=== PATIENT | female | born 1970 | race Caucasian/White ===

== ENCOUNTER 2016-11-27 17:03 | Emergency (ER) | payer BC, OTHER ==
[2016-11-27 17:23] VITALS: BP 150/84; PULSE 80; RESP 16; TEMP 97.7
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
== END 2016-11-27 18:05 | disposition home or self-care (01) ==
LOC: EC 17:03
DX: M54.5 Low back pain (principal); Z87.891 Personal history of nicotine dependence; V43.52XA Car driver injured in collision with other type car in traffic accident, initial encounter; Y92.481 Parking lot as the place of occurrence of the external cause
CPT/HCPCS: 99283

== ENCOUNTER → 2017-04-23 | Outpatient (CLI) | payer OTHER ==
--- NOTE | 2017-04-23 11:35 | XR ---
EXAMINATION TYPE: XR knee complete LT DATE OF EXAM: 04/23/2017 COMPARISON: NONE HISTORY: Pain TECHNIQUE: Four views are submitted. FINDINGS: Mild narrowing of the medial compartment of the knee joint. Mild narrowing patellofemoral joint.. Os seous structures are intact. No acute fracture seen. IMPRESSION: 1. No acute fracture or dislocation. 2. Mild arthropathy.
== END | disposition home or self-care (01) ==
LOC: RADXRMAIN 11:01
PROVIDERS: ATTEND Emergency Medicine
DX: M12.862 Other specific arthropathies, not elsewhere classified, left knee (principal)

== ENCOUNTER → 2017-04-27 | Outpatient (CLI) | payer OTHER ==
--- NOTE | 2017-04-27 17:32 | XR ---
EXAMINATION TYPE: XR tibia fibula LT DATE OF EXAM: 04/27/2017 COMPARISON: NONE HISTORY: Leg pain TECHNIQUE: 4 views FINDINGS: I see no fracture nor dislocation. Tibia and fibula appear intact. IMPRESSION: Negative left tibia and fibula exam.
== END | disposition home or self-care (01) ==
LOC: RADXRMAIN 16:57
PROVIDERS: ATTEND Emergency Medicine
DX: S80.02XA Contusion of left knee, initial encounter (principal)

== ENCOUNTER → 2018-05-19 | Outpatient (CLI) | payer BC ==
--- NOTE | 2018-05-21 10:34 | MM ---
Reason for exam: screening (asymptomatic). Last mammogram was performed 8 years and 10 months ago. History: Took hormonal contraceptives for 2 years. Physical Findings: A clinical breast exam by your physician is recommended on an annual basis and results should be correlated with mammographic findings. MG 3D Screening Mammo W/Cad Bilateral CC and MLO view(s) were taken. Prior study comparison: July 13, 2009, bilateral digital screening mammogram. The breast tissue is heterogeneously dense. This may lower the sensitivity of mammography. No significant changes when compared with prior studies. ASSESSMENT: Negative, BI-RAD 1 RECOMMENDATION: Routine screening mammogram of both breasts in 1 year.
== END | disposition home or self-care (01) ==
LOC: RADMAMWWP 08:16
PROVIDERS: ATTEND Family Medicine
DX: Z12.31 Encounter for screening mammogram for malignant neoplasm of breast (principal)
CPT/HCPCS: 77063; 77067

== ENCOUNTER 2020-07-14 22:42 | Emergency (ER) | payer BC ==
[2020-07-14 22:53] VITALS: TEMP 97.7
--- NOTE | 2020-07-14 23:37 | ED ---
Fall HPI - General Chief Complaint: Fall Stated Complaint: Fall Time Seen by Provider: 07/14/20 23:02 Source: patient Mode of arrival: wheelchair - Related Data Home Medications Medication Instructions Recorded Confirmed Calcium Carbonate [Calcium] 600 mg PO HS 11/27/16 11/27/16 Multivitamins, Thera [Multivitamin 1 tab PO HS 11/27/16 11/27/16 (formulary)] Potassium 99 mg PO HS 11/27/16 11/27/16 Zinc 50 mg PO HS 11/27/16 11/27/16 metFORMIN HCL [Glucophage] 1,000 mg PO BID 11/27/16 11/27/16 Previous Rx's Medication Instructions Recorded Cyclobenzaprine [Flexeril] 10 mg PO TID #20 tab 11/27/16 Ibuprofen 600 mg PO Q6HR #30 tablet 11/27/16 Allergies Allergy/AdvReac Type Severity Reaction Status Date / Time codeine AdvReac Nausea & Verified 07/14/20 22:53 Vomiting Review of Systems ROS Statement: Those systems with pertinent positive or pertinent negative responses have been documented in the HPI. ROS Other: All systems not noted in ROS Statement are negative. Past Medical History Past Medical History: Diabetes Mellitus, Hypertension Additional Past Medical History / Comment(s): COVID 01/05 History of Any Multi-Drug Resistant Organisms: None Reported Past Surgical History: Section, Hernia Repair Past Psychological History: No Psychological Hx Reported Smoking Status: Former smoker Past Alcohol Use History: Occasional Past Drug Use History: None Reported General Exam Limitations: no limitations Course Vital Signs 07/14/20 22:49 Temperature 97.7 F Pulse Rate 78 Respiratory 20 Rate Blood Pressure 134/92 O2 Sat by Pulse 99 Oximetry Disposition Clinical Impression: Fall, Closed right ankle fracture Disposition: HOME SELF-CARE Condition: Good Instructions (If sedation given, give patient instructions): Fall Prevention for Older Adults (ED), Ankle Fracture (ED) Is patient prescribed a controlled substance at d/c from ED?: No Referrals: Shellie Yang MD [Primary Care Provider] - 1-2 days
--- NOTE | 2020-07-14 23:52 | XR ---
EXAMINATION TYPE: XR hand complete LT DATE OF EXAM: 07/14/2020 COMPARISON: NONE HISTORY: Fall. Pain. TECHNIQUE: 3 views FINDINGS: Metacarpals appear intact. I see no fracture nor dislocation. There are no erosions. IMPRESSION: Negative left hand exam. No fracture.
--- NOTE | 2020-07-14 23:53 | XR ---
EXAMINATION TYPE: XR ankle complete RT DATE OF EXAM: 07/14/2020 COMPARISON: NONE HISTORY: Fall. Pain. TECHNIQUE: 3 views FINDINGS: There is oblique fracture of the distal fibula. There is soft tissue swelling over the late ral malleolus. Ankle mortise is anatomic. Talus is intact. IMPRESSION: Acute fracture of the distal fibula with soft tissue swelling.
--- NOTE | 2020-07-14 23:58 | CT ---
EXAMINATION TYPE: CT brain cspine wo con DATE OF EXAM: 07/14/2020 COMPARISON: None HISTORY: Fall CT DLP: 1546.5 mGycm Automated exposure control for dose reduction was used. Images obtained of the brain and cervical spine without contrast. Ventricles have normal size. There is no mass effect nor midline shift. There is no sign of intracran ial hemorrhage. The calvarium is intact. There is normal aeration of the mastoid air cells. Skull bas e is intact. The cervical vertebra have normal alignment. Posterior elements are intact. Facet joints are intact. There is no evidence of a fracture. IMPRESSION: Negative CT scan of the cervical spine. No fracture. Negative CT scan of the brain.
[2020-07-15 01:40] VITALS: BP 144/78; PULSE 80; RESP 18
== END 2020-07-15 01:40 | disposition home or self-care (01) ==
LOC: EC 22:42
DX: S82.831A Other fracture of upper and lower end of right fibula, initial encounter for closed fracture (principal); E11.9 Type 2 diabetes mellitus without complications; I10 Essential (primary) hypertension; Z79.84 Long term (current) use of oral hypoglycemic drugs; Z87.891 Personal history of nicotine dependence; W07.XXXA Fall from chair, initial encounter
CPT/HCPCS: 70450; 72125; 99284

== ENCOUNTER 2021-03-07 11:14 | Emergency (ER) | payer BC ==
[2021-03-07] MEDS ORDERED: lisinopriL 20 MG TAB PO STA (11:35)
[2021-03-07] MEDS ORDERED: SODIUM CHLORIDE 0.9% 500 ML 500 ML IV STA (11:40)
[2021-03-07 11:43] VITALS: RESP 16
--- NOTE | 2021-03-07 12:07 | XR ---
EXAMINATION TYPE: XR chest 2V DATE OF EXAM: 03/07/2021 COMPARISON: NONE HISTORY: Chest pain TECHNIQUE: Frontal and lateral views of the chest are obtained. FINDINGS: There is no focal air space opacity, pleural effusion, or pneumothorax seen. The cardiac silhouette size is within normal limits. There are overlying leads. The osseous structures are intac t. IMPRESSION: No acute cardiopulmonary process.
[2021-03-07 12:11] LABS: ALT 30 U/L (4-34); AST 24 U/L (14-36); African American GFR (CKD) >90 (>60 ml/min/1.73 sqM); Albumin 4.6 g/dL (3.5-5.0); Alkaline Phosphatase 116 U/L (38-126); Anion Gap 13 mmol/L; Blood Urea Nitrogen 14 mg/dL (7-17); Calcium 10.3 mg/dL (8.4-10.2); Carbon Dioxide 24 mmol/L (22-30); Chloride 100 mmol/L (98-107); Glucose 213 mg/dL (74-99); Magnesium 1.6 mg/dL (1.6-2.3); Non-African American GFR(CKD) >90 (>60 ml/min/1.73 sqM); Potassium 4.1 mmol/L (3.5-5.1); Sodium 137 mmol/L (137-145); Total Bilirubin 0.6 mg/dL (0.2-1.3); Total Protein 7.9 g/dL (6.3-8.2)
[2021-03-07 12:14] LABS: INR 0.9 (<1.2); Partial Thromboplastin Time 22.4 sec (22.0-30.0); Prothrombin Time 9.6 sec (9.0-12.0)
[2021-03-07 12:34] LABS: Basophils # (A) 0.1 k/uL (0-0.2); Basophils % (A) 1 %; Eosinophils # (A) 0.2 k/uL (0-0.7); Eosinophils % (A) 3 %; HGB 15.4 gm/dL (11.4-16.0); Lymphocytes # (A) 2.5 k/uL (1.0-4.8); Lymphocytes % (A) 34 %; MCH 30.8 pg (25.0-35.0); MCHC 33.4 g/dL (31.0-37.0); MCV 92.4 fL (80.0-100.0); Mean Platelet Volume 8.6; Monocytes # (A) 0.3 k/uL (0-1.0); Monocytes % (A) 4 %; Neutrophils # (A) 4.1 k/uL (1.3-7.7); Neutrophils % (A) 56 %; Platelet Count 300 k/uL (150-450); RBC 4.98 m/uL (3.80-5.40); RDW 13.1 % (11.5-15.5); WBC 7.3 k/uL (3.8-10.6)
--- NOTE | 2021-03-07 12:50 | ED ---
General Adult HPI - General Chief complaint: Chest Pain Stated complaint: chest thightness/left arm pain Time Seen by Provider: 03/07/21 11:20 Source: patient, RN notes reviewed, old records reviewed Mode of arrival: ambulatory Limitations: no limitations - History of Present Illness Initial comments: 51-year-old female presenting for evaluation of elevated blood pressure. Patient has been recently switched to hydrochlorothiazide she's been on this m edication for several days. She has been monitoring her blood pressure at home and this has been elevated. Patient had contacted her primary care physician who had added lisinopril to her medication regimen however she has not taken this medication yet. She did have some mild chest tightness and was sent to the emergency department for evaluation. No chest pain, no radiation of symptoms. No history of CAD. Initial blood pressure is elevated. - Related Data Home Medications Medication Instructions Recorded Confirmed Calcium Carbonate [Calcium] 600 mg PO HS 11/27/16 11/27/16 Multivitamins, Thera [Multivitamin 1 tab PO HS 11/27/16 11/27/16 (formulary)] Potassium 99 mg PO HS 11/27/16 11/27/16 Zinc 50 mg PO HS 11/27/16 11/27/16 metFORMIN HCL [Glucophage] 1,000 mg PO BID 11/27/16 11/27/16 Previous Rx's Medication Instructions Recorded Cyclobenzaprine [Flexeril] 10 mg PO TID #20 tab 11/27/16 Ibuprofen 600 mg PO Q6HR #30 tablet 11/27/16 Allergies Allergy/AdvReac Type Severity Reaction Status Date / Time codeine AdvReac Nausea & Verified 03/07/21 11:16 Vomiting Review of Systems ROS Statement: Those systems with pertinent positive or pertinent negative responses have been documented in the HPI. ROS Other: All systems not noted in ROS Statement are negative. Past Medical History Past Medical History: Diabetes Mellitus, Hypertension Additional Past Medical History / Comment(s): COVID 01/05 History of Any Multi-Drug Resistant Organisms: None Reported Past Surgical History: Section, Hernia Repair Past Psychological History: No Psychological Hx Reported Smoking Status: Former smoker Past Alcohol Use History: Occasional Past Drug Use History: None Reported General Exam Limitations: no limitations General appearance: alert, in no apparent distress Head exam: Present: atraumatic, normocephalic Eye exam: Present: normal appearance, PERRL ENT exam: Present: normal exam Neck exam: Present: normal inspection. Absent: tenderness, meningismus Respiratory exam: Present: normal lung sounds bilaterally. Absent: respiratory distress, wheezes Cardiovascular Exam: Present: regular rate, normal rhythm GI/Abdominal exam: Present: soft. Absent: distended, tenderness, guarding, rebound Extremities exam: Present: normal inspection, normal capillary refill. Absent: pedal edema Neurological exam: Present: alert, oriented X3, CN II-XII intact. Absent: motor sensory deficit Psychiatric exam: Present: normal affect, normal mood Skin exam: Present: warm, dry, intact Course Vital Signs 03/07/21 03/07/21 11:16 11:42 Temperature 97.7 F Pulse Rate 90 75 Respiratory 18 16 Rate Blood Pressure 197/119 132/100 O2 Sat by Pulse 99 97 Oximetry EKG Findings - EKG Comments: EKG Findings:: Normal sinus rhythm, LVH, rate of 71, W[place] interval 164, QRS duration 88, QTC 4:30, no ST segment elevation. Medical Decision Making - Medical Decision Making 1-year-old female presenting with elevated blood pressure. Patient well- appearing. Did obtain EKG which shows sinus rhythm without ST segment elevation. Chest x-ray showing no acute process. Normal CBC, normal CMP with the exception of an elevated blood sugar. Negative troponin. Patient's blood pressure does downtrend nicely in the emergency department. Her diastolic is still somewhat elevated. She will continue lisinopril as prescribed by her primary care physician. She will monitor her blood pressure. Strict return parameters are discussed. - Lab Data Result diagrams: 03/07/21 11:24 03/07/21 11:24 Lab Results 03/07/21 03/07/21 03/07/21 Range/Units 11:24 11:24 11:24 WBC 7.3 (3.8-10.6) k/uL RBC 4.98 (3.80-5.40) m/uL Hgb 15.4 (11.4-16.0) gm/dL Hct 46.0 (34.0-46.0) % MCV 92.4 (80.0-100.0) fL MCH 30.8 (25.0-35.0) pg MCHC 33.4 (31.0-37.0) g/dL RDW 13.1 (11.5-15.5) % Plt Count 300 (150-450) k/uL MPV 8.6 Neutrophils % 56 % Lymphocytes % 34 % Monocytes % 4 % Eosinophils % 3 % Basophils % 1 % Neutrophils # 4.1 (1.3-7.7) k/uL Lymphocytes # 2.5 (1.0-4.8) k/uL Monocytes # 0.3 (0-1.0) k/uL Eosinophils # 0.2 (0-0.7) k/uL Basophils # 0.1 (0-0.2) k/uL PT 9.6 (9.0-12.0) sec INR 0.9 (<1.2) APTT 22.4 (22.0-30.0) sec Sodium 137 (137-145) mmol/L Potassium 4.1 (3.5-5.1) mmol/L Chloride 100 (98-107) mmol/L Carbon Dioxide 24 (22-30) mmol/L Anion Gap 13 mmol/L BUN 14 (7-17) mg/dL Creatinine 0.69 (0.52-1.04) mg/dL Est GFR (CKD-EPI)AfAm >90 (>60 ml/min/1.73 sqM) Est GFR (CKD-EPI)NonAf >90 (>60 ml/min/1.73 sqM) Glucose 213 H (74-99) mg/dL Calcium 10.3 H (8.4-10.2) mg/dL Magnesium 1.6 (1.6-2.3) mg/dL Total Bilirubin 0.6 (0.2-1.3) mg/dL AST 24 (14-36) U/L ALT 30 (4-34) U/L Alkaline Phosphatase 116 (38-126) U/L Troponin I (0.000-0.034) ng/mL Total Protein 7.9 (6.3-8.2) g/dL Albumin 4.6 (3.5-5.0) g/dL 03/07/21 Range/Units 11:24 WBC (3.8-10.6) k/uL RBC (3.80-5.40) m/uL Hgb (11.4-16.0) gm/dL Hct (34.0-46.0) % MCV (80.0-100.0) fL MCH (25.0-35.0) pg MCHC (31.0-37.0) g/dL RDW (11.5-15.5) % Plt Count (150-450) k/uL MPV Neutrophils % % Lymphocytes % % Monocytes % % Eosinophils % % Basophils % % Neutrophils # (1.3-7.7) k/uL Lymphocytes # (1.0-4.8) k/uL Monocytes # (0-1.0) k/uL Eosinophils # (0-0.7) k/uL Basophils # (0-0.2) k/uL PT (9.0-12.0) sec INR (<1.2) APTT (22.0-30.0) sec Sodium (137-145) mmol/L Potassium (3.5-5.1) mmol/L Chloride (98-107) mmol/L Carbon Dioxide (22-30) mmol/L Anion Gap mmol/L BUN (7-17) mg/dL Creatinine (0.52-1.04) mg/dL Est GFR (CKD-EPI)AfAm (>60 ml/min/1.73 sqM) Est GFR (CKD-EPI)NonAf (>60 ml/min/1.73 sqM) Glucose (74-99) mg/dL Calcium (8.4-10.2) mg/dL Magnesium (1.6-2.3) mg/dL Total Bilirubin (0.2-1.3) mg/dL AST (14-36) U/L ALT (4-34) U/L Alkaline Phosphatase (38-126) U/L Troponin I <0.012 (0.000-0.034) ng/mL Total Protein (6.3-8.2) g/dL Albumin (3.5-5.0) g/dL Disposition Clinical Impression: Hypertension Disposition: HOME SELF-CARE Condition: Good Instructions (If sedation given, give patient instructions): Hypertension (ED) Additional Instructions: Please monitor blood pressure at home. Please start lisinopril as prescribed by her primary care physician. Please follow up with her primary care physician and return to the emergency department with any changing or worsening symptoms. Is patient prescribed a controlled substance at d/c from ED?: No Referrals: Nonstaff,Physician [Primary Care Provider] - 1-2 days Time of Disposition: 12:50
[2021-03-07 13:09] VITALS: BP 141/85; PULSE 77; TEMP 98.7
== END 2021-03-07 13:12 | disposition home or self-care (01) ==
LOC: EC 11:14
DX: I10 Essential (primary) hypertension (principal); E11.9 Type 2 diabetes mellitus without complications; Z87.891 Personal history of nicotine dependence; Z79.84 Long term (current) use of oral hypoglycemic drugs; Z79.899 Other long term (current) drug therapy
CPT/HCPCS: 36415; 71046; 80053; 83735; 84484; 85025; 85610; 85730; 93005; 99284

== ENCOUNTER → 2022-12-16 | Outpatient (CLI) | payer BC ==
--- NOTE | 2022-12-17 21:30 | CT ---
EXAMINATION TYPE: CT iac wo con DATE OF EXAM: 12/16/2022 COMPARISON: CT brain 07/14/2020 HISTORY: 52-year-old female H90.A32 Fluid in ears x [address] DLP: 142.7 mGycm Automated exposure control for dose reduction was used. TECHNIQUE: Thin cut CT scanning of the temporal bones without contrast. Coronal reformatted images ob tained. FINDINGS: Visualized intracranial structures show no gross abnormality by noncontrast thin slice technique. Minimal debris deep within the left external auditory canal. External auditory canals otherwise appea r clear. There is partial opacification of the left mastoid air cells. Some additional partial opacification e xtending into the left abdomen is ad antrum and epitympanum partially encasing the incus. There is no erosions of the middle ear ossicles or blunting of the scutum. The right mastoid air cells and right middle ear cavity remains pneumatized. The round and oval windows are normal. There is no abnormality of bony labyrinths. The vestibular and cochlear aqueducts are well visualized. The facial nerve canal is normal bilaterally. The internal auditory canal and meati are symmetrical bilaterally. There is no evidence of fractures. Large lobulated mucosal retention cyst left maxillary sinus measuring up to 2.5 cm. Smaller in the ri ght maxillary sinus measuring up to 1.1 cm. There is undulating nasal septum and scattered mild to mo derate mucosal thickening throughout the ethmoid air cells. Moderate degenerative change right TMJ and mild at the left TMJ. Reformatted images confirm above findings. IMPRESSION: 1. Some scattered fluid trapped in the left mastoid air cells. Correlate for any mastoid pain to excl ude mastoiditis. 2. Additional opacification involving the left aditus ad antrum extending into the left epitympanum a nd partially encasing the incus. No ossicular or other bony erosion at this time. Findings could repr esent otitis media or cholesteatoma. 3. Incidental: Mucosal retention cysts in the left greater than right maxillary sinuses measuring up to 2.5 cm. Undulating nasal septum. Bilateral TMJ OA, greater on the right.
== END | disposition home or self-care (01) ==
LOC: RADCTMAIN 16:20
PROVIDERS: ATTEND Otolaryngology
DX: H90.A32 Mixed conductive and sensorineural hearing loss, unilateral, left ear with restricted hearing on the contralateral side (principal); M26.649 Arthritis of unspecified temporomandibular joint; J34.89 Other specified disorders of nose and nasal sinuses
CPT/HCPCS: 70480

== ENCOUNTER → 2023-04-14 | Outpatient (CLI) | payer BC ==
--- NOTE | 2023-04-14 19:15 | CT ---
EXAMINATION TYPE: CT angio chest CT DLP: 974 mGycm, Automated exposure control for dose reduction was used. DATE OF EXAM: 04/14/2023 4:38 PM COMPARISON: Chest radiograph from same day. CT CLINICAL INDICATION:Female, 53 years old with history of Z82.49 FAMILY HX OF ISCHEM HEART; thoracic a neurysm TECHNIQUE/CONTRAST: CTA scan of the thorax is performed with IV Contrast, patient injected with 80 cc mL of Isovue 370, M IP images are created and reviewed these are created on a separate workstation.. FINDINGS: Lungs/Pleura: No evidence of focal consolidation, pleural effusion or pneumothorax. 5 mm right upper lobe ground glass nodule series 8 image 26. Airway: Large airways are patent. Heart: Heart is within normal limits for size. Vasculature: No evidence for intramural hematoma on noncontrast imaging. No evidence of intimal flap to suggest dissection. No aneurysm identified. Scattered atherosclerotic disease. Mediastinum: No gross evidence of adenopathy. Musculoskeletal: No acute osseous abnormalities Soft Tissues: No lymphadenopathy or masses. Lower neck: Bilateral thyroid nodules. Upper Abdomen: No significant findings. IMPRESSION: 1. No evidence for aortic aneurysm. No evidence for dissection or pulmonary embolus. The thoracic an d visualized abdominal aorta is within normal limits for size. 2. Stable from 21 5 mm right upper lobe pulmonary nodule. Consider yearly low-dose lung cancer scree rosalino. Findings could represent early minimally invasive bronchoalveolar carcinoma.
== END | disposition home or self-care (01) ==
LOC: RADCTMAIN 15:33
PROVIDERS: ATTEND Family Medicine
DX: R91.1 Solitary pulmonary nodule (principal); I71.20 Thoracic aortic aneurysm, without rupture, unspecified; Z82.49 Family history of ischemic heart disease and other diseases of the circulatory system
CPT/HCPCS: 71275; Q9967

== ENCOUNTER 2023-11-02 21:32 | Emergency (ER) | payer BC, OTHER ==
[2023-11-02 22:01] VITALS: RESP 18; TEMP 98.3
--- NOTE | 2023-11-02 23:26 | ED ---
Abdominal Pain HPI - General Chief Complaint: Abdominal Pain Stated Complaint: Upper Abd Pain,Vomiting Time Seen by Provider: 11/02/23 22:03 Source: patient Mode of arrival: ambulatory Limitations: no limitations - History of Present Illness Initial Comments: Patient is a 53-year-old woman who presents for evaluation of epigastric abdominal pain. The pain came on tonight while she was at [facility]. She states she has also had accompanying nausea and did have some vomiting. No hematemesis. MD Complaint: abdominal pain -: hour(s) Location: epigastric Radiation: none Migration to: no migration Severity: moderate Quality: cramping, aching Consistency: constant Improves With: nothing Worsens With: nothing Associated Symptoms: nausea, vomiting - Related Data Home Medications Medication Instructions Recorded Confirmed Calcium Carbonate [Calcium] 600 mg PO HS 11/27/16 11/27/16 Multivitamins, Thera [Multivitamin 1 tab PO HS 11/27/16 11/27/16 (formulary)] Potassium 99 mg PO HS 11/27/16 11/27/16 Zinc 50 mg PO HS 11/27/16 11/27/16 metFORMIN HCL [Glucophage] 1,000 mg PO BID 11/27/16 11/27/16 Previous Rx's Medication Instructions Recorded Cyclobenzaprine [Flexeril] 10 mg PO TID #20 tab 11/27/16 Ibuprofen 600 mg PO Q6HR #30 tablet 11/27/16 Famotidine [Pepcid] 20 mg PO BID #14 tablet 11/03/23 Ondansetron Odt [Zofran ODT] 4 mg PO Q8HR PRN #10 tab 11/03/23 Allergies Allergy/AdvReac Type Severity Reaction Status Date / Time codeine AdvReac Nausea & Verified 11/02/23 21:58 Vomiting Review of Systems ROS Statement: Those systems with pertinent positive or pertinent negative responses have been documented in the HPI. ROS Other: All systems not noted in ROS Statement are negative. Constitutional: Denies: fever, chills Respiratory: Denies: cough, dyspnea Cardiovascular: Denies: chest pain, palpitations, edema Gastrointestinal: Reports: abdominal pain, nausea, vomiting. Denies: diarrhea, constipation, melena, hematochezia Genitourinary: Denies: dysuria, frequency, hematuria Musculoskeletal: Denies: back pain Skin: Denies: rash Neurological: Denies: headache, weakness, numbness Past Medical History Past Medical History: Diabetes Mellitus, Hypertension Additional Past Medical History / Comment(s): COVID 01/05 History of Any Multi-Drug Resistant Organisms: None Reported Past Surgical History: Section, Hernia Repair Additional Past Surgical History / Comment(s): 04/2023 Brain/ear surgery Past Psychological History: No Psychological Hx Reported Smoking Status: Former smoker Past Alcohol Use History: Occasional Past Drug Use History: None Reported General Exam Limitations: no limitations General appearance: alert, in no apparent distress Head exam: Present: atraumatic, normocephalic Eye exam: Present: normal appearance. Absent: scleral icterus, conjunctival injection ENT exam: Present: normal oropharynx Neck exam: Present: normal inspection, full ROM Respiratory exam: Present: normal lung sounds bilaterally. Absent: respiratory distress, wheezes, rales, rhonchi, stridor, accessory muscle use Cardiovascular Exam: Present: regular rate, normal rhythm, normal heart sounds. Absent: systolic murmur, diastolic murmur, rubs, gallop GI/Abdominal exam: Present: soft, tenderness. Absent: distended, guarding, rebound, rigid, mass, pulsatile mass, hernia Extremities exam: Present: normal inspection, normal capillary refill. Absent: pedal edema, calf tenderness Back exam: Present: normal inspection. Absent: CVA tenderness (R), CVA tenderness (L) Neurological exam: Present: alert Skin exam: Present: warm, dry, intact, normal color. Absent: rash Course Vital Signs 11/02/23 11/03/23 21:58 01:00 Temperature 98.3 F Pulse Rate 80 86 Respiratory 18 18 Rate Blood Pressure 142/94 146/90 O2 Sat by Pulse 96 97 Oximetry Medical Decision Making - Medical Decision Making The patient had ultrasound that I interpreted as being negative for acute cholecystitis, negative for kidney stone Was pt. sent in by a medical professional or institution (, PA, PARTS COUNTER ASSOCIATE, urgent care, hospital, or intermediate...) When possible be specific @ -[No] Did you speak to anyone other than the patient for history (EMS, parent, family, police, friend...)? What history was obtained from this source @ -[No] Did you review nursing and triage notes (agree or disagree)? Why? @ -[I reviewed and agree with nursing and triage notes] Were old charts reviewed (outside hosp., previous admission, EMS record, old EKG, old radiological studies, urgent care reports/EKG's, intermediate records)? Report findings @ -[No old charts were reviewed] Differential Diagnosis (chest pain, altered mental status, abdominal pain women, abdominal pain men, vaginal bleeding, weakness, fever, dyspnea, syncope, headache, dizziness, GI bleed, back pain, seizure, CVA, palpatations, mental health, musculoskeletal)? @ -[Differential Abdominal Pain Women: Appendicitis, Cholecystitis, diverticulosis, ischemic bowel, pancreatitis, hepatitis, UTI, gastroenteritis, AAA, incarcerated hernia, bowel obstruction, constipation, inflammatory bowel, hepatitis, peptic ulcer disease, splenic infarction, perforated viscus, vulvitis, ovarian torsion, PID, kidney stone, p lacenta abruption, this is not meant to be an all-inclusive list EKG interpreted by me (3pts min.). @ -[As above] X-rays interpreted by me (1pt min.). @ -[None done] CT interpreted by me (1pt min.). @ -[None done] U/S interpreted by me (1pt. min.). @ -[I interpreted as above What testing was considered but not performed or refused? (CT, X-rays, U/S, labs)? Why? @ -[None] What meds were considered but not given or refused? Why? @ -[None] Did you discuss the management of the patient with other professionals (professionals i.e. , PA, PARTS COUNTER ASSOCIATE, lab, RT, psych nurse, social work lecturer, conservation coordinator, teacher, landcare officer, casework specialist)? Give summary @ -[No] Was smoking cessation discussed for >3mins.? @ -[No] Was critical care preformed (if so, how long)? @ -[No] Were there social determinants of health that impacted care today? How? (Homelessness, low income, unemployed, alcoholism, drug addiction, transportation, low edu. Level, literacy, decrease access to med. care, prison, rehab)? @ -[No] Was there de-escalation of care discussed even if they declined (Discuss DNR or withdrawal of care, Hospice)? DNR status @ -[No] What co-morbidities impacted this encounter? (DM, HTN, Smoking, COPD, CAD, Cancer, CVA, ARF, Chemo, Hep., AIDS, mental health diagnosis, sleep apnea, morbid obesity)? @ -[None] Was patient admitted / discharged? Hospital course, mention meds given and route, prescriptions, significant lab abnormalities, going to OR and other pertinent info. @ -[This patient is a 53-year-old woman with abdominal pain. The patient did have improvement in symptoms. The patient's workup does not reveal exact etiology. I discussed the remaining items on the differential, the appropriate further care and follow-up as well as return parameters. Undiagnosed new problem with uncertain prognosis? @ -[No] Drug Therapy requiring intensive monitoring for toxicity (Heparin, Nitro, Insulin, Cardizem)? @ -[No] Were any procedures done? @ -[No] Diagnosis/symptom? @ -[Acute abdominal pain Possible gastritis versus biliary colic Acute, or Chronic, or Acute on Chronic? @ -[Acute Uncomplicated (without systemic symptoms) or Complicated (systemic symptoms)? @ -[Uncomplicated Side effects of treatment? @ -[No] Exacerbation, Progression, or Severe Exacerbation? @ -[No] Poses a threat to life or bodily function? How? (Chest pain, USA, ME, pneumonia, PE, COPD, DKA, ARF, appy, cholecystitis, CVA, Diverticulitis, Homicidal, Suicidal, threat to staff... and all critical care pts) @ -[No] - Lab Data Result diagrams: 11/02/23 22:30 11/02/23 22:30 Lab Results 11/02/23 11/02/23 11/02/23 Range/Units 22:30 22:30 23:50 WBC 12.8 H (3.8-10.6) k/uL RBC 4.74 (3.80-5.40) m/uL Hgb 14.4 (11.4-16.0) gm/dL Hct 43.1 (34.0-46.0) % MCV 90.8 (80.0-100.0) fL MCH 30.3 (25.0-35.0) pg MCHC 33.3 (31.0-37.0) g/dL RDW 12.5 (11.5-15.5) % Plt Count 272 (150-450) k/uL MPV 8.2 Neutrophils % 84 % Lymphocytes % 10 % Monocytes % 3 % Eosinophils % 1 % Basophils % 1 % Neutrophils # 10.8 H (1.3-7.7) k/uL Lymphocytes # 1.3 (1.0-4.8) k/uL Monocytes # 0.4 (0-1.0) k/uL Eosinophils # 0.1 (0-0.7) k/uL Basophils # 0.1 (0-0.2) k/uL Sodium 137 (137-145) mmol/L Potassium 4.0 (3.5-5.1) mmol/L Chloride 103 (98-107) mmol/L Carbon Dioxide 23 (22-30) mmol/L Anion Gap 11 mmol/L BUN 22 H (7-17) mg/dL Creatinine 0.81 (0.52-1.04) mg/dL Est GFR (CKD-EPI)AfAm >90 (>60 ml/min/1.73 sqM) Est GFR (CKD-EPI)NonAf 83 (>60 ml/min/1.73 sqM) Glucose 247 H (74-99) mg/dL Calcium 9.7 (8.4-10.2) mg/dL Total Bilirubin 0.5 (0.2-1.3) mg/dL AST 21 (14-36) U/L ALT 30 (4-34) U/L Alkaline Phosphatase 155 H (38-126) U/L Total Protein 6.8 (6.3-8.2) g/dL Albumin 4.2 (3.5-5.0) g/dL Amylase 62 (30-110) U/L Lipase 77 (23-300) U/L Urine Color Yellow Urine Appearance Turbid H (Clear) Urine pH 5.5 (5.0-8.0) Ur Specific [place] 1.031 (1.001-1.035) Urine Protein 1+ H (Negative) Urine Glucose (UA) 2+ H (Negative) Urine Ketones Negative (Negative) Urine Blood Small H (Negative) Urine Nitrite Negative (Negative) Urine Bilirubin Negative (Negative) Urine Urobilinogen <2.0 (<2.0) mg/dL Ur Leukocyte Esterase Moderate H (Negative) Urine RBC 4 (0-5) /hpf Urine WBC 3 (0-5) /hpf Ur Squamous Epith Cells 6 H (0-4) /hpf Calcium Oxalate Crystal Rare H (None) /hpf Urine Bacteria Moderate H (None) /hpf Urine Mucus Rare H (None) /hpf Urine Yeast (Budding) Rare H (None) /hpf Disposition Clinical Impression: Abdominal pain Disposition: HOME SELF-CARE Condition: Good Instructions (If sedation given, give patient instructions): Abdominal Pain (ED) Prescriptions: Famotidine [Pepcid] 20 mg PO BID #14 tablet Ondansetron Odt [Zofran ODT] 4 mg PO Q8HR PRN #10 tab PRN Reason: Nausea Is patient prescribed a controlled substance at d/c from ED?: No Referrals: Briana Pozo DO [Primary Care Provider] - 1-2 days Luna Qureshi MD [STAFF PHYSICIAN] - 1-2 days Mathew San MD [STAFF PHYSICIAN] - 1-2 days
[2023-11-02 23:36] LABS: Basophils # (A) 0.1 k/uL (0-0.2); Basophils % (A) 1 %; Eosinophils # (A) 0.1 k/uL (0-0.7); Eosinophils % (A) 1 %; HCT 43.1 % (34.0-46.0); HGB 14.4 gm/dL (11.4-16.0); Lymphocytes # (A) 1.3 k/uL (1.0-4.8); Lymphocytes % (A) 10 %; MCH 30.3 pg (25.0-35.0); MCHC 33.3 g/dL (31.0-37.0); MCV 90.8 fL (80.0-100.0); Mean Platelet Volume 8.2; Monocytes # (A) 0.4 k/uL (0-1.0); Monocytes % (A) 3 %; Neutrophils # (A) 10.8 k/uL (1.3-7.7); Neutrophils % (A) 84 %; Platelet Count 272 k/uL (150-450); RBC 4.74 m/uL (3.80-5.40); RDW 12.5 % (11.5-15.5); WBC 12.8 k/uL (3.8-10.6)
[2023-11-02 23:40] LABS: ALT 30 U/L (4-34); AST 21 U/L (14-36); African American GFR (CKD) >90 (>60 ml/min/1.73 sqM); Albumin 4.2 g/dL (3.5-5.0); Alkaline Phosphatase 155 U/L (38-126); Amylase 62 U/L (30-110); Anion Gap 11 mmol/L; Blood Urea Nitrogen 22 mg/dL (7-17); Calcium 9.7 mg/dL (8.4-10.2); Carbon Dioxide 23 mmol/L (22-30); Chloride 103 mmol/L (98-107); Glucose 247 mg/dL (74-99); Lipase 77 U/L (23-300); Non-African American GFR(CKD) 83 (>60 ml/min/1.73 sqM); Sodium 137 mmol/L (137-145); Total Bilirubin 0.5 mg/dL (0.2-1.3); Total Protein 6.8 g/dL (6.3-8.2)
[2023-11-03 00:11] LABS: Appearance,Urine Turbid (Clear); Bacteria,Urine Moderate /hpf; Bilirubin,Urine Negative (Negative); Blood,Urine Small (Negative); Budding Yeast,Urine Rare /hpf; Calcium Oxalate Crystals,Urine Rare /hpf; Color,Urine Yellow; Glucose,Urine (UA) 2+ (Negative); Ketones,Urine Negative (Negative); Leukocyte Esterase,Urine Moderate (Negative); Mucus,Urine Rare /hpf; Nitrite,Urine Negative (Negative); PH, Urine 5.5 (5.0-8.0); Protein,Urine 1+ (Negative); RBC,Urine 4 /hpf (0-5); Specific Gravity,Urine 1.031 (1.001-1.035); Squamous Epithelial Cell,Urine 6 /hpf (0-4); Urobilinogen,Urine <2.0 mg/dL (<2.0); WBC,Urine 3 /hpf (0-5)
[2023-11-03 01:01] VITALS: BP 146/90; PULSE 86
--- NOTE | 2023-11-03 04:35 | US ---
EXAM: US Abdomen Complete CLINICAL HISTORY: abdominal pain, attention RUQ TECHNIQUE: Real-time ultrasound of the abdomen with image documentation. 79 images COMPARISON: No relevant prior studies available. FINDINGS: Limitations: Exam is limited due to body habitus and poor resolution. Liver: Unremarkable. No mass. No intrahepatic bile duct dilation. Gallbladder: No sonographic Campbell's sign. Gallbladder wall measures about 2 mm in maximal thickness. No gallstones. Common bile duct: Obscured by overlying bowel gas. Pancreas: Unremarkable as visualized. Kidneys: Likely 9 x 24 mm peripelvic left renal cyst versus mild hydronephrosis. Right kidney measures about 11.1 cm longitudinally. Left kidney measures about 10.3 cm longitudinally. No stones. Spleen: Spleen measures about 9.6 cm longitudinally. Aorta: Unremarkable. No abdominal aortic aneurysm. IMPRESSION: Likely 9 x 24 mm peripelvic left renal cyst versus mild hydronephrosis.
== END 2023-11-03 01:10 | disposition home or self-care (01) ==
LOC: EC 21:32
CPT/HCPCS: 36415; 76700; 80053; 81001; 82150; 83690; 85025; 99284